=== PATIENT | female | born 1990 | race African-American/Black ===

== ENCOUNTER 2018-11-30 20:54 | Emergency (ER) | payer OTHER ==
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
[2018-12-01] MEDS ORDERED: NORCO 5/325 PO ONE
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
[2018-12-01 05:07] VITALS: BP 96/62
== END 2018-12-01 05:06 | disposition home or self-care (01) ==
LOC: ED 20:54
DX: S16.1XXA Strain of muscle, fascia and tendon at neck level, initial encounter (principal); G44.309 Post-traumatic headache, unspecified, not intractable; V49.59XA Passenger injured in collision with other motor vehicles in traffic accident, initial encounter; Y93.89 Activity, other specified; Y92.410 Unspecified street and highway as the place of occurrence of the external cause; Y99.8 Other external cause status
CPT/HCPCS: 70450; 72040